=== PATIENT | male | born 1955 | race Caucasian/White ===

== ENCOUNTER 2019-09-30 13:16 | Observation (INO) ==
--- OUTSIDE RECORDS SUMMARY | 2019-09-30 13:20 | External Medical Summary | Continuity of Care Document ---
:1955 Author Name Марина Go, Provider Address Unavailable Unavailable , Care Team Providers Name Role Phone Unavailable Unavailable Unavailable Gene Manriquez Unavailable [email or web address] Emmanuel Hines DO Unavailable [email or web address] Problems Viral syndrome (079.99) (B34.9) Hypocalcemia (275.41) (E83.51) Vitamin D deficiency (268.9) (E55.9) Prostatic hyperplasia (600.90) (N40.0) Hypercholesterolemia (272.0) (E78.00) Allergies and Adverse Reactions No Known Drug Allergies (Allergy) Medications Glucosamine Sulfate 1000 MG Oral Capsule; TAKE DIRECTED. Donavan Start: 14-Aug-2016 Refills: 0 Super B-Complex Oral Tablet; TAKE 1 TABLET DAILY. Donavan Start: 14-Aug-2016 Refills: 0 Vitamin D3 125 MCG (5000 UT) Oral Tablet; Take 1 tablet henry y AddisDMichelle Start: 14-Aug-2016 Refills: 0 Fish Oil 1200 MG Oral Capsule; Take 1 PO Daily MAX Tomlinson Start: 28-Feb-2011 Refills: 0 Multiple Vitamin TABS , M.D. Refills: 0 Iron Supplement 325 (65 Fe) MG TABS , M.D. Refills: 0 Benzonatate 200 MG Oral Capsule; TAKE 1 CAPSULE 3 TIME S DAILY NEEDED. DO Emmanuel Hines Start: 04-Sep-2017 Quantity: 30 Refills: 1 Pravastatin Sodium 10 MG Oral Tablet; TAKE 1 TABLET DAILY. MAX Ryder Start: 12-Feb-2016 Quantity: 30 Refills: 11 Tamsulosin HCl - 0.4 MG Oral Capsule; take 1 PO QHS Aislinn Tomlinson Start: 12-Feb-2016 Quantity: 30 Refills: 5 Procedures Procedures not documented Immunizations Immunizations not documented Family History Mother Family history of borderline diabetes mellitus (V18.0) (Z83. 3) Status: Active Father Family history of cardiac disorder (V17.49) (Z82.49) Status: Active Social History - Smoking Status Ex-smoker Plan of Treatment Planned Observations Planned Goals not documented Results No Known Results Results not documented
[2019-09-30] MEDS ORDERED: HYDROCODONE/ACETAMOPHEN 5/325MG TAB PO STA (13:46)
--- NOTE | 2019-09-30 15:37 | Ultrasound Report ---
US abdomen ltd hernia CLINICAL HISTORY: Periumbilical hernia COMPARISON STUDY: No previous studies for comparison. FINDINGS: Note is made of a large supraumbilical hernia which contains fat, bowel and fluid. This her citlaly was not reducible. IMPRESSION: Nonreducible large supraumbilical hernia which contains bowel, fluid and fat. ACT 112: Negative or not required by law. Results electronically sent 09/30/2019 3:36 PM to: Juanito Bird PA-C Electronically signed by: Shawn Cross M.D. 09/30/2019 3:36 PM
--- NOTE | 2019-09-30 16:38 | History & Physical Report ---
Date of Service September 30, 2019 Assessment & Plan (1) Umbilical hernia: 64 year-old male with history of umbilical hernia for 7-8 years. Previously reducible but since Friday enlarged in size, unreducible, and overlying skin erythema. Ultrasound showing incarcerated hernia containing fat, bowel, and fluid. Upon extensive manipulation the hernia was able to be somewhat reduced. However given his work duties with heavy lifting, overlying erythema, ultrasound showing bowel involvement would recommend surgical repair. Patient agreed with repair given acute changes with hernia. Discussed procedure, risks, and recovery/restrictions. Patient and understood. Informed consent obtained by Dr. Sheppard. I ( Shane Sheppard MD ) D/W the risks - infection , bleeding, hernia recurrence, complications relate to mesh, pt understood, he agrees with the surgery, I answered all questions, Will admit under observation to med/surg until OR available Keep NPO IV fluids, IV morphine prn pain Will get [address] Sheppard has seen and examined pt, agrees with above. History of Present Illness Chief Complaint: nonreducible umbilical hernia and pain Primary Care Provider: Ashley Miguel is a pleasant 64 year-old male who has had a umbilical hernia for about 7-8 years which has always been small and reducible. 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 States he was not able to push the hernia back in. Pain started increasing in nature so presented to ED. Denies of any fever, chills, nausea, vomiting, chest pain, shortness of breath, difficulty breathing, change in bowel habits, diarrhea, constipation, or blood in stools. Able to urinate and have bowel movements without difficulty. No blood thinning agents. No prior surgery. Otherwise healthy and only takes vitamins, fish oil, and Advil for home medications. Allergies Allergy/AdvReac Type Severity Reaction Status Date / Time No Known Allergies Allergy Unknown Verified 09/30/19 16:51 Home Medications Home Medications Medication Instructions Recorded Confirmed Type B-COMPLEX VITAMINS (VITAMIN B 1 tab PO DAILY #0 08/24/14 09/30/19 History COMPLEX) Fish Oil ([place]-3) 1 cap PO DAILY #0 cap 08/24/14 09/30/19 History Multivitamin 1 tab PO DAILY #0 tab 08/24/14 09/30/19 History Glucosamine 400 mg PO DAILY 09/30/19 09/30/19 History Past Med/Surg History Medical History No significant past medical history Umbilical hernia Surgical History No history of previous surgery Social History Feels Safe at Home: Yes Smoking Status: Former smoker Review of Systems Review of Systems: All systems reviewed & are unremarkable except as noted in HPI & below Physical Exam Constitutional: WD/WN, vitals as above no acute distress and not ill appearing Respiratory: normal respiratory effort; no respiratory distress Gastrointestinal (Abdomen): Inspection/Auscultation: abdomen normal to inspection Percussion/Palpation: abdomen soft and + hernia (supraumbilical hernia with overlying erythema.); abdomen nontender, no guarding and abdomen not rigid upon further manipulation of the hernia was able to reduce most of it however not completely. Skin: no rashes, warm and dry Psychiatric: A+Ox3, euthymic affect Results & Data Vital Signs (Past 12 Hours) Vital Signs Temp Pulse Pulse Resp BP BP Pulse Ox 09/30/19 14:46 83 18 152/97 H 95 09/30/19 13:34 36.9 C 91 H 16 168/107 H 93 Diagnostic Findings US abdomen ltd hernia CLINICAL HISTORY: Periumbilical hernia COMPARISON STUDY: No previous studies for comparison. FINDINGS: Note is made of a large supraumbilical hernia which contains fat, bowel and fluid. This hernia was not reducible. IMPRESSION: Nonreducible large supraumbilical hernia which contains bowel, fluid and fat. Code Status & VTE Plan VTE Prophylaxis Plan VTE Prophylaxis will be ordered: Yes
[2019-09-30 17:09] LABS: Basophils # (auto) 0.04 K/uL (0-0.2); Basophils % (auto) 0.4 %; Eosinophils # (auto) 0.12 K/uL (0-0.5); Eosinophils % (auto) 1.3 %; Hematocrit (blood only) 45.7 % (42-52); Hemoglobin 15.5 g/dL (14.0-18.0); Immature Granulocytes # (auto) 0.01 K/uL (0.00-0.02); Immature Granulocytes % (auto) 0.1 %; Lymphocytes # (auto) 1.51 K/uL (1.2-3.4); Lymphocytes % (auto) 16.5 %; Mean Corpuscular Hemoglobin 32.4 pg (25-34); Mean Corpuscular Hgb Conc 33.9 g/dL (32-36); Mean Corpuscular Volume 95.6 fL (80-100); Mean Platelet Volume 9.9 fL (7.4-10.4); Monocytes # (auto) 0.89 K/uL (0.11-0.59); Monocytes % (auto) 9.7 %; Neutrophils # (auto) 6.58 K/uL (1.4-6.5); Platelet Count 250 K/uL (130-400); RDW Coefficient of Variation 13.3 % (11.5-14.5); RDW Standard Deviation 46.7 fL (36.4-46.3); Red Blood Count 4.78 M/uL (4.7-6.1); White Blood Count 9.15 K/uL (4.8-10.8)
[2019-09-30 17:27] LABS: Albumin Level 3.5 gm/dl (3.4-5.0); BUN Creatinine Ratio 16.4 (10-20); Calcium 9.5 mg/dl (8.5-10.1); Creatinine Clr Calc Pharmacy 97.1 ml/min; Est GFR (African American) 102.8; Est GFR (Non-African American) 88.7; Potassium 3.6 mmol/L (3.5-5.1)
[2019-09-30 17:30] LABS: Albumin Globulin Ratio 0.9 (0.9-2); Bilirubin,Total 0.8 mg/dl (0.2-1); Total Protein 7.5 gm/dl (6.4-8.2)
--- NOTE | 2019-09-30 17:37 | Anesthesiology Consultation ---
Date of Service September 30, 2019 Assessment & Plan (1) Encounter for pre-operative examination: Chart Review Chart Review: Acceptable Risk for Surgery and Patient NOT seen in Pre Admission Testing Consults Requested none History Surgery Operation Date: 09/30/19 10:10 Proposed Procedures p Open Umbilical Hernia Repair, Possible Mesh - Shane Sheppard MD Height/Weight Height: 5 ft 8 in Weight: 110 kg Allergies Allergy/AdvReac Type Severity Reaction Status Date / Time No Known Allergies Allergy Unknown Verified 09/30/19 16:51 Medications Home Medications Medication Instructions Recorded Confirmed Last Taken B-COMPLEX VITAMINS (VITAMIN B 1 tab PO DAILY #0 08/24/14 09/30/19 Unknown COMPLEX) Fish Oil ([place]-3) 1 cap PO DAILY #0 cap 08/24/14 09/30/19 Unknown Multivitamin 1 tab PO DAILY #0 tab 08/24/14 09/30/19 Unknown Glucosamine 400 mg PO DAILY 09/30/19 09/30/19 Unknown Past Medical History Medical History No significant past medical history Umbilical hernia Exercise / Class Metabolic Activity II 4-5 Yardwork/Stairs/Walk up hill Past Surgical History Surgical History No history of previous surgery Past Anesthesia History No Hx of Anesthesia Complications and No Family Hx of Anesthesia Complications History of PONV No Hx of PONV and No Hx of Motion Sickness Social History Smoking Status: Former smoker Do You Dip or Chew Tobacco: No Hx Alcohol Use: No Hx Substance Use: No Physical Exam Vital Signs Last Vital Signs Temp 36.9 C 09/30/19 17:43 Pulse 81 09/30/19 17:27 Resp 18 09/30/19 17:43 BP 136/100 09/30/19 17:43 Pulse Ox 95 09/30/19 17:43 Testing Laboratory Results 09/30/19 16:56 09/30/19 16:56
--- NOTE | 2019-09-30 17:44 | History & Physical Bridge Note ---
Date of Service September 30, 2019 History & Physical Bridge Note I have examined the patient, reviewed the History & Physical and in the interval since the performance of the History & Physical I have noted the following changes of clinical significance: no changes noted
[2019-09-30] MEDS ORDERED: CEFAZOLIN 2,000 MG/15 ML IV PUSH IV ONE (17:47)
[2019-09-30] MEDS ORDERED: ONDANSETRON INJ 2 MG/ML 2 ML VIAL IV PRN ×3 (17:58→21:02)
[2019-09-30] MEDS ORDERED: fentaNYL citrate 100 MCG/2 ML VIAL IV PRN (17:58)
[2019-09-30] MEDS ORDERED: ePHEDrine sulfate 50 MG/ML AMP IV PRN (17:58)
[2019-09-30] MEDS ORDERED: ATROPINE SULFATE 0.1 MG/ML 10ML SYR IV PRN (17:58)
[2019-09-30] MEDS ORDERED: HYDROmorphone INJ 1 MG/ML SYRINGE IV PRN ×2 (17:58→21:02)
[2019-09-30] MEDS ORDERED: CEFAZOLIN 2000MG 2,000 MG/15 ML SYR IV SCH (18:00)
[2019-09-30] MEDS ORDERED: fentaNYL citrate 100 MCG/2 ML VIAL ONE (18:10)
[2019-09-30] MEDS ORDERED: PROPOFOL IV EMULSION 10 MG/ML 20 ML VIAL IV ONE (18:10)
[2019-09-30] MEDS ORDERED: ONDANSETRON INJ 2 MG/ML 2 ML VIAL ONE (18:10)
[2019-09-30] MEDS ORDERED: LARYING-O-JET KIT (LTA) ONE (18:10)
[2019-09-30] MEDS ORDERED: LIDOCAINE HCL 2% 2 ML VIAL/AMP(20MG/ML) INFIL ONE (18:10)
[2019-09-30] MEDS ORDERED: NEOSTIGMINE METHYLSULFATE 5 MG/5 ML SYR ONE (18:10)
[2019-09-30] MEDS ORDERED: GLYCOPYRROLATE 0.2 MG/ML VIAL ONE (18:10)
[2019-09-30] MEDS ORDERED: MIDAZOLAM HCL 1 MG/ML 2ML VIAL ONE (18:10)
[2019-09-30] MEDS ORDERED: DEXAMETHASONE SOD INJ 4 MG/ML VIAL ONE (18:10)
[2019-09-30] MEDS ORDERED: ROCURONIUM BROMIDE 10 MG/ML 5 ML VIAL ONE (18:11)
[2019-09-30] MEDS ORDERED: BACITRACIN OINT 15 GM TUBE ONE (18:16)
[2019-09-30] MEDS ORDERED: LIDOCAINE HCL 1% 20 ML VIAL ONE (18:16)
[2019-09-30] MEDS ORDERED: BUPIVACAINE 0.5 % 5 MG/1 ML MPF 30ML VIAL ONE (18:16)
[2019-09-30] MEDS ORDERED: ePHEDrine sulfate 50 MG/ML SYR ONE (19:07)
[2019-09-30] MEDS ORDERED: PHENYLEPHRINE HCL 10 MG/ML VIAL ONE (19:07)
[2019-09-30] MEDS ORDERED: KETOROLAC 30 MG/ML VIAL ONE (19:18)
--- NOTE | 2019-09-30 19:44 | Post Operative Brief Note ---
Immediate Post Op Note v1 Date of Surgery September 30, 2019 Pre & Post Diagnosis Operation Date: 09/30/19 10:10 Pre-Op Diagnosis: Incarcerated umbilical hernia Post-Op Diagnosis: Incarcerated ventral hernia and umbilical hernia I identified the patient and participated in the time-out.: Yes Procedure Operation Date: 09/30/19 10:10 Actual Procedures p Repair of Incarcerated Ventral Hernia and umbilical hernia with Mesh - Shane Sheppard MD Surgeon Shane Sheppard MD Facility Worker certified surgical assistant Estimated Blood Loss 10 Findings Consistent with Post-Op Diagnosis incarcerated ventral hernia size 3x3cm, umbilical hernia size 0.8x0.8cm, Fluids 1200ml Specimens hernia sac Anesthesia Type General Complications none Disposition Accompanied Patient To Recovery: Yes Disposition: Recovery Room Overlapping Procedure I was immediately available: during the entire case.
[2019-09-30] MEDS ORDERED: LACTATED RINGER'S 1,000 ML IV SCH ×2 (21:02)
[2019-09-30] MEDS ORDERED: OXYCODONE/ACETAMINOPHEN 5mg/325mg TAB PO PRN ×2 (21:02)
[2019-09-30] MEDS ORDERED: OXYCODONE/ACETAMINOPHEN 5mg/325mg TAB PO STA (21:02)
[2019-09-30] MEDS ORDERED: MoRPHine SULFATE 4 MG/ML 1 ML CARP\\VIAL IV PRN ×2 (21:02)
[2019-09-30] MEDS ORDERED: ACETAMINOPHEN 325 MG TAB PO PRN (21:02)
[2019-09-30] MEDS ORDERED: CEFAZOLIN 2000MG 2,000 MG/15 ML SYR IV ONE (21:02)
--- NOTE | 2019-09-30 21:34 | Anesthesiology Progress Note ---
Date of Service September 30, 2019 Anesthesia Post Procedure Vital Signs Vital Signs: Temp Pulse Pulse Pulse Resp BP BP 09/30/19 21:00 36.5 C 83 18 135/89 09/30/19 20:40 88 18 123/83 09/30/19 20:30 36.5 C 85 16 115/86 09/30/19 20:20 83 14 130/85 09/30/19 20:10 82 13 126/85 09/30/19 20:00 88 21 127/78 09/30/19 19:53 36.9 C 95 H 22 123/74 09/30/19 17:43 36.9 C 18 136/100 09/30/19 17:27 81 20 155/89 H 09/30/19 16:02 81 20 155/92 H 09/30/19 14:46 83 18 152/97 H 09/30/19 13:34 36.9 C 91 H 16 168/107 H Pulse Ox 09/30/19 21:00 91 09/30/19 20:40 93 09/30/19 20:30 94 09/30/19 20:20 94 09/30/19 20:10 94 09/30/19 20:00 97 09/30/19 19:53 98 09/30/19 17:43 95 09/30/19 17:27 93 09/30/19 16:02 93 09/30/19 14:46 95 09/30/19 13:34 93 Pain Intensity Medial Abdomen: Pain Intensity: 0 Transfer of Care Handoff Completed per policy Notes Mental Status: alert / awake / arousable and participated in evaluation Patient Amnestic to Procedure: Yes Nausea / Vomiting: adequately controlled Pain: adequately controlled Airway Patency, RR, SpO2: stable & adequate BP & HR: stable & adequate Hydration State: stable & adequate Anesthetic Complications: no major complications apparent and Pt Satisfied with anesthetic care
--- NOTE | 2019-10-01 01:59 | Operative Report (OR) ---
DATE OF OPERATION: 09/30/2019 PREOPERATIVE DIAGNOSIS: Incarcerated umbilical hernia. POSTOPERATIVE DIAGNOSIS: Incarcerated ventral hernia and umbilical hernia. OPERATION: Open repair of incarcerated ventral hernia and umbilical hernia with mesh. SURGEON: Shane Sheppard MD ANESTHESIA: General. ESTIMATED BLOOD LOSS: About 10 mL. FINDINGS: Incarcerated ventral hernia size about 3 x 3 cm containing the small bowel and umbilical hernia size about 0.8 x 0.8 cm. The ventral hernia is just located above umbilical hernia. COMPLICATIONS: None. INDICATIONS FOR THE PROCEDURE: This is a 64-year-old gentleman who presented to the ED with periumbilical pain with bulging. The patient had umbilical hernia for 7 years and recently it got worse bulging with pain and skin color change. The patient had ultrasound diagnosis as incarcerated umbilical hernia. So once I got the history and physical exam and reviewed the ultrasound, I recommended to do the open repair of incarcerated umbilical hernia, possibly with mesh. I did talk to the patient about the benefits, the risks, and alternate procedure. I indicated the risks may include, but not limited, such as bleeding, infection, hernia recurrence, complication related to mesh. The patient understands. He signed informed consent and I answered all questions. DETAILS OF PROCEDURE: We brought in the patient to the OR, put the patient in the supine position. The patient received SCDs on bilateral legs to prevent DVT. Also, patient received 2 g Ancef IV for prophylactic antibiotic. The patient received general anesthesia without difficulty. The abdomen was prepped and draped in routine sterile fashion. After time-out, reexamined the patient. The patient had significant bulging on the top of umbilicus with the bulging size of about 8 x 8 cm with redness skin color change. Also small bulging on the umbilicus. At this moment, we made a midline incision just above umbilicus, the incision size about 8 cm long, dissection of the subcutaneous layer and then we found the patient had a large hernia sac, about 8 x 8 cm hernia sac. Then we mobilized the hernia sac and found the patient had the incarcerated ventral hernia. Once we completely mobilized the hernia sac, we opened the hernia sac and then we were able to reduce the small bowel omental fat back to abdominal cavity. Then we excised the hernia sac. Then we found the patient had ventral hernia; the hernia, the neck size about 3 x 3 cm and also patient had one umbilical hernia, the umbilical hernia size about 0.8 x 0.8 cm. At this moment, we combined these 2 hernias into one hernia. Once we opened the fascia, noted they were close next to each other. Once we combined into one hernia, we chose a 6.4 cm round mesh to repair his ventral hernia and umbilical hernia. I used 0 Ethibond to suture the mesh to the fascial layer interruptedly 360 degrees. Then we tied each suture one by one and hemostasis was obtained. Then I closed the subcutaneous layer by using 2-0 Vicryl interruptedly, closed skin by using 4-0 Vicryl continuous running. Then we put the dressing on. The patient tolerated the procedure well. All the instrument, needle, and sponge count were correct x2 at the end of the case. The patient transferred to recovery room in stable condition. The specimen, hernia sac, was sent to pathology. After the procedure, I did talk to the patient and family member about the OR finding and procedure we did, they understand. I attest to the content of the Intraoperative Record and any orders documented therein. Any exceptions are noted below. FLACA
[2019-10-01] MEDS: CEFAZOLIN 1000MG 1,000 MG/7.5 ML SYR IV SCH ×2 (02:50→09:59)
[2019-10-01 06:43] LABS: Basophils # (auto) 0.01 K/uL (0-0.2); Basophils % (auto) 0.1 %; Hematocrit (blood only) 44.2 % (42-52); Hemoglobin 14.6 g/dL (14.0-18.0); Immature Granulocytes # (auto) 0.01 K/uL (0.00-0.02); Immature Granulocytes % (auto) 0.1 %; Lymphocytes # (auto) 0.69 K/uL (1.2-3.4); Lymphocytes % (auto) 6.6 %; Mean Corpuscular Volume 96.9 fL (80-100); Mean Platelet Volume 10.1 fL (7.4-10.4); Monocytes # (auto) 0.46 K/uL (0.11-0.59); Monocytes % (auto) 4.4 %; Neutrophils # (auto) 9.29 K/uL (1.4-6.5); Neutrophils % (auto) 88.8 %; Platelet Count 242 K/uL (130-400); RDW Coefficient of Variation 13.6 % (11.5-14.5); RDW Standard Deviation 48.5 fL (36.4-46.3); Red Blood Count 4.56 M/uL (4.7-6.1); White Blood Count 10.46 K/uL (4.8-10.8)
--- NOTE | 2019-10-01 08:24 | Anesthesiology Progress Note ---
Date of Service October 01, 2019 Anesthesia Post Procedure Vital Signs Vital Signs: Temp Pulse Pulse Pulse Pulse Resp BP 10/01/19 07:38 36.9 C 87 20 10/01/19 02:52 36.5 C 84 16 10/01/19 00:05 10/01/19 00:04 36.6 C 81 16 09/30/19 23:36 09/30/19 22:06 36.6 C 88 18 09/30/19 21:33 36.5 C 91 H 18 09/30/19 21:00 36.5 C 83 18 09/30/19 20:40 88 18 09/30/19 20:30 36.5 C 85 16 09/30/19 20:20 83 14 09/30/19 20:10 82 13 09/30/19 20:00 88 21 09/30/19 19:53 36.9 C 95 H 22 09/30/19 17:43 36.9 C 18 09/30/19 17:27 81 20 09/30/19 16:02 81 20 09/30/19 14:46 83 18 09/30/19 13:34 36.9 C 91 H 16 168/107 H BP Pulse Ox 10/01/19 07:38 104/70 90 10/01/19 02:52 98/63 L 93 10/01/19 00:05 91 10/01/19 00:04 105/69 89 L 09/30/19 23:36 116/78 91 09/30/19 22:06 121/78 92 09/30/19 21:33 123/81 93 09/30/19 21:00 135/89 91 09/30/19 20:40 123/83 93 09/30/19 20:30 115/86 94 09/30/19 20:20 130/85 94 09/30/19 20:10 126/85 94 09/30/19 20:00 127/78 97 09/30/19 19:53 123/74 98 09/30/19 17:43 136/100 95 09/30/19 17:27 155/89 H 93 09/30/19 16:02 155/92 H 93 09/30/19 14:46 152/97 H 95 09/30/19 13:34 93 Pain Intensity Medial Abdomen: Pain Intensity: 0 Notes Mental Status: alert / awake / arousable and participated in evaluation Patient Amnestic to Procedure: Yes Nausea / Vomiting: adequately controlled Pain: adequately controlled Airway Patency, RR, SpO2: stable & adequate BP & HR: stable & adequate Hydration State: stable & adequate Anesthetic Complications: no major complications apparent and Pt Satisfied with anesthetic care
--- NOTE | 2019-10-01 09:37 | Surgery Progress Note ---
Date of Service October 01, 2019 Assessment & Plan (1) Umbilical hernia: POD # 1 s/p repair of incarcerated ventral hernia and small umbilical hernia with mesh -vitals stable, afebrile - postop pain minimal to none - tolerating diet Plan: D/c iv fluids encouraged to ambulate hallway abdominal binder for support discharge home today discharge instructions reviewed f/u surgery office [address] Sheppard has seen patient, agrees with above Subjective feeling great minimal to no pain tolerating regular diet, no n/v urinating without difficulty Physical Exam Constitutional: WD/WN, vitals as above no acute distress Respiratory: normal respiratory effort; no respiratory distress Gastrointestinal (Abdomen): Inspection/Auscultation: abdomen normal to inspection; abdomen not distended Percussion/Palpation: abdomen soft; abdomen nontender, no guarding and abdomen not rigid Skin: no rashes, warm and dry + incision (incision covered with dry dressing, no spotting) Psychiatric: A+Ox3, euthymic affect Results & Data Vital Signs (Past 12 Hours) Vital Signs Temp Pulse Pulse Pulse Resp BP Pulse Ox 10/01/19 07:38 36.9 C 87 20 104/70 90 10/01/19 02:52 36.5 C 84 16 98/63 L 93 10/01/19 00:05 91 10/01/19 00:04 36.6 C 81 16 105/69 89 L 09/30/19 23:36 116/78 91 09/30/19 22:06 36.6 C 88 18 121/78 92 Laboratory Results 10/01/19 09/30/19 09/30/19 Range/Units 06:18 16:56 16:56 WBC 10.46 9.15 (4.8-10.8) K/uL RBC 4.56 L 4.78 (4.7-6.1) M/uL Hgb 14.6 15.5 (14.0-18.0) g/dL Hct 44.2 45.7 (42-52) % MCV 96.9 95.6 (80-100) fL MCH 32.0 32.4 (25-34) pg MCHC 33.0 33.9 (32-36) g/dL RDW Std Deviation 48.5 H 46.7 H (36.4-46.3) fL RDW Coeff of Benjamin 13.6 13.3 (11.5-14.5) % Plt Count 242 250 (130-400) K/uL MPV 10.1 9.9 (7.4-10.4) fL Immature Gran % (Auto) 0.1 0.1 % Neut % (Auto) 88.8 72.0 % Lymph % (Auto) 6.6 16.5 % [place] % (Auto) 4.4 9.7 % Eos % (Auto) 0.0 1.3 % Baso % (Auto) 0.1 0.4 % Immature Gran # (Auto) 0.01 0.01 (0.00-0.02) K/uL Neut # (Auto) 9.29 H 6.58 H (1.4-6.5) K/uL Lymph # (Auto) 0.69 L 1.51 (1.2-3.4) K/uL [place] # (Auto) 0.46 0.89 H (0.11-0.59) K/uL Eos # (Auto) 0.00 0.12 (0-0.5) K/uL Baso # (Auto) 0.01 0.04 (0-0.2) K/uL Sodium 141 (136-145) mmol/L Potassium 3.6 (3.5-5.1) mmol/L Chloride 110 H (98-107) mmol/L Carbon Dioxide 28 (21-32) mmol/L Anion Gap 3.0 (3-11) BUN 15 (7-18) mg/dl Creatinine 0.90 (0.6-1.4) mg/dl Est Cr Clr Drug Dosing 97.1 ml/min Est GFR ( Amer) 102.8 Est GFR (Non-Af Amer) 88.7 BUN/Creatinine Ratio 16.4 (10-20) Glucose 105 H (70-99) mg/dl Calcium 9.5 (8.5-10.1) mg/dl Total Bilirubin 0.8 (0.2-1) mg/dl AST 11 L (15-37) U/L ALT 18 (12-78) U/L Alkaline Phosphatase 86 (45-117) U/L Total Protein 7.5 (6.4-8.2) gm/dl Albumin 3.5 (3.4-5.0) gm/dl Globulin 4.0 (2.5-4.0) gm/dl Albumin/Globulin Ratio 0.9 (0.9-2)
--- NOTE | 2019-10-01 11:17 | Emergency Department Note ---
History of Present Illness General Chief complaint: Groin Pain Stated complaint: GET HERNIA CHECK Time Seen by Provider: 09/30/19 13:39 History of Present Illness Maximum Pain Intensity: 4 This is a 64-year-old male presenting to the emergency department for evaluation of abdominal pain worsening over the past 3 to 4 days. The patient has a periumbilical hernia that is usually reducible. He states that a few days ago it "popped out", and he has not been able to push it back in. He states that over the past 1 to 2 days he has had increasing pain and now has redness over the hernia site. He has not had fevers or chills. No difficulty using the bathroom. He rates his current discomfort a 4/10 and has not taken anything [id number] for his symptoms. Last bowel movement was yesterday and was normal. Home Medications Home Medications Medication Instructions Recorded Confirmed Type B-COMPLEX VITAMINS (VITAMIN B 1 tab PO DAILY #0 08/24/14 09/30/19 History COMPLEX) Fish Oil ([place]-3) 1 cap PO DAILY #0 cap 08/24/14 09/30/19 History Multivitamin 1 tab PO DAILY #0 tab 08/24/14 09/30/19 History Glucosamine 400 mg PO DAILY 09/30/19 09/30/19 History oxycodone-acetaminophen [Percocet] 1 tab PO Q4H PRN #12 tab 10/01/19 Rx Allergies Allergy/AdvReac Type Severity Reaction Status Date / Time No Known Allergies Allergy Unknown Verified 09/30/19 16:51 Past Med/Surg History Medical History No significant past medical history Umbilical hernia (Acute) Surgical History No history of previous surgery Social History Preferred Language: Italian Communication Ability: Effective 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 Beliefs That Will Affect Care: None Current Living Situation: Spouse Feels Safe at Home: Yes Smoking Status: Former smoker Do You Dip or Chew Tobacco: No ; Hx Alcohol Use: No Hx Substance Use: No Review of Systems A total of 10 systems reviewed and were otherwise negative Physical Exam Vital Signs Vital Signs - 24 hr 09/30/19 13:34 09/30/19 14:46 09/30/19 16:02 Temperature 36.9 C Temperature Source Oral Pulse Rate 91 H Pulse Rate [Left] 83 81 Pulse Rhythm [Left] Regular Respiratory Rate 16 18 20 Respiratory Effort / Characteristics Non-Labored Spontaneous Non-Labored Non-Labored Spontaneous Respiratory Depth Normal Normal Normal Respiratory Pattern Regular Regular Blood Pressure 168/107 H Blood Pressure [Left Arm] 152/97 H 155/92 H Blood Pressure Mean 127 Blood Pressure Mean [Left Arm] 115 113 Pulse Oximetry 93 95 93 Oxygen Delivery Method Room Air Room Air Room Air Sepsis Recent Fever Within 48 Hours No Sepsis New/Unexplained Change in Mental Status No Sepsis Action Taken by Nursing No Action Required VITALS: Vitals are noted on the nurse's note and reviewed by myself. Vital signs stable. GENERAL: Well-developed, well-nourished, white male who appears mildly uncomfortable but overall cooperative. HEAD: Normocephalic atraumatic. EYES: Pupils equal round and reactive to light and accommodation. Conjunctivae without injection, sclerae without icterus. Extraocular movements intact. HEART: Regular rate and rhythm without murmurs gallops or rubs. LUNGS: Clear to auscultation bilaterally without wheezes, rales or rhonchi. No retractions or accessory muscle use. ABDOMEN: Positive normal bowel sounds x 4. There is a rather large roughly 8 x 8 cm periumbilical hernia. Hernia site is very firm and erythematous. It is without significant tenderness, although it does cause some discomfort with palpation. This is not reducible. MUSCULOSKELETAL: No muscle atrophy, erythema, or edema noted. Full range of motion in all extremities. No tenderness to palpation. NEURO: Patient was alert and oriented to person place and time. CN II through XII grossly intact. SKIN: The skin was without additional rashes, erythema, edema, or bruising. Capillary refill less than 2 seconds. Course Administered Medications Cefazolin Sodium (Ancef 1000mg) 1,000 mg in 7.5 mls @ 2.5 mls/min IV Q8H CASSI Stop: 10/03/19 01:59 Last Admin: 10/01/19 09:59 Dose: 2.5 mls/min Documented by: [id number] Admin: 10/01/19 02:50 Dose: 2.5 mls/min Documented by: [id number] Discontinued Medications Hydrocodone Bitart/Acetaminophen ([place] 5/325) 1 tab PO NOW STA Stop: 09/30/19 13:47 Last Admin: 09/30/19 14:01 Dose: 1 tab Documented by: [id number] Bacitracin (Bacitracin) Confirm Administered Dose 45 appln .ROUTE .STK-MED ONE Stop: 09/30/19 18:17 Last Admin: 09/30/19 19:35 Dose: 1 appln Documented by: [id number] Bupivacaine HCl (Marc[place] 0.5% Mpf) Confirm Administered Dose 30 ml .ROUTE .STK- MED ONE Stop: 09/30/19 18:17 Last Admin: 09/30/19 19:30 Dose: 12 ml Documented by: [id number] Cefazolin Sodium (Ancef 2000mg) Confirm Administered Dose 2,000 mg IV .STK-MED O NE Stop: 09/30/19 17:48 Last Admin: 09/30/19 18:52 Dose: Not Given Documented by: [id number] Cefazolin Sodium (Ancef 2000mg) 2,000 mg in 15 mls @ 3.75 mls/min IV PREOP CASSI; Protocol Stop: 09/30/19 18:01 Last Admin: 09/30/19 18:20 Dose: 3.75 mls/min Documented by: [id number] Lactated Ringer's (Lr) 1,000 mls @ 100 mls/hr IV .Q10H CASSI Stop: 10/30/19 21:01 Last Infusion: 09/30/19 23:30 Dose: 0 mls/hr Documented by: [id number] Infusion: 09/30/19 22:10 Dose: 0 mls/hr Documented by: [id number] Admin: 09/30/19 22:08 Dose: 100 mls/hr Documented by: [id number] Lactated Ringer's (Lr) 1,000 mls @ 50 mls/hr IV .Q20H CASSI Stop: 10/30/19 21:01 Last Infusion: 10/01/19 09:51 Dose: 0 mls/hr Documented by: [id number] Infusion: 09/30/19 23:30 Dose: 50 mls/hr Documented by: [id number] Admin: 09/30/19 22:13 Dose: 50 mls/hr Documented by: [id number] Lidocaine HCl (Xylocaine 1% (Local)) Confirm Administered Dose 20 ml .ROUTE .STK-MED ONE Stop: 09/30/19 18:17 Last Admin: 09/30/19 19:30 Dose: 12 ml Documented by: [id number] Oxycodone/Acetaminophen (Percocet 5mg/325mg) 1 tab PO NOW STA Stop: 09/30/19 21:03 Last Admin: 09/30/19 22:13 Dose: 1 tab Documented by: [id number] Medical Decision Making Differential Diagnosis Differential diagnosis: Etiologies such as incarcerated hernia, biliary colic, cholecystitis, hepatitis, pancreatitis, cardiac disease, pancreatitis, gastritis, peptic ulcer disease, appendicitis, cystitis, diverticulitis, mesenteric ischemia, inflammatory bowel disease, ileus, bowel obstruction, testicular/adnexal torsion, aortic pathology, shingles, as well as others were considered Laboratory Data Result diagrams: 10/01/19 06:18 09/30/19 16:56 Lab Results 09/30/19 09/30/19 Range/Units 16:56 16:56 WBC 9.15 (4.8-10.8) K/uL RBC 4.78 (4.7-6.1) M/uL Hgb 15.5 (14.0-18.0) g/dL Hct 45.7 (42-52) % MCV 95.6 (80-100) fL MCH 32.4 (25-34) pg MCHC 33.9 (32-36) g/dL RDW Std Deviation 46.7 H (36.4-46.3) fL RDW Coeff of Benjamin 13.3 (11.5-14.5) % Plt Count 250 (130-400) K/uL MPV 9.9 (7.4-10.4) fL Immature Gran % (Auto) 0.1 % Neut % (Auto) 72.0 % Lymph % (Auto) 16.5 % Luna % (Auto) 9.7 % Eos % (Auto) 1.3 % Baso % (Auto) 0.4 % Immature Gran # (Auto) 0.01 (0.00-0.02) K/uL Neut # (Auto) 6.58 H (1.4-6.5) K/uL Lymph # (Auto) 1.51 (1.2-3.4) K/uL Luna # (Auto) 0.89 H (0.11-0.59) K/uL Eos # (Auto) 0.12 (0-0.5) K/uL Baso # (Auto) 0.04 (0-0.2) K/uL Sodium 141 (136-145) mmol/L Potassium 3.6 (3.5-5.1) mmol/L Chloride 110 H (98-107) mmol/L Carbon Dioxide 28 (21-32) mmol/L Anion Gap 3.0 (3-11) BUN 15 (7-18) mg/dl Creatinine 0.90 (0.6-1.4) mg/dl Est Cr Clr Drug Dosing 97.1 ml/min Est GFR ( Amer) 102.8 Est GFR (Non-Af Amer) 88.7 BUN/Creatinine Ratio 16.4 (10-20) Glucose 105 H (70-99) mg/dl Calcium 9.5 (8.5-10.1) mg/dl Total Bilirubin 0.8 (0.2-1) mg/dl AST 11 L (15-37) U/L ALT 18 (12-78) U/L Alkaline Phosphatase 86 (45-117) U/L Total Protein 7.5 (6.4-8.2) gm/dl Albumin 3.5 (3.4-5.0) gm/dl Globulin 4.0 (2.5-4.0) gm/dl Albumin/Globulin Ratio 0.9 (0.9-2) Imaging Data Radiologist's Impression: US abdomen ltd hernia CLINICAL HISTORY: Periumbilical hernia COMPARISON STUDY: No previous studies for comparison. FINDINGS: Note is made of a large supraumbilical hernia which contains fat, bowel and fluid. This hernia was not reducible. IMPRESSION: Nonreducible large supraumbilical hernia which contains bowel, fluid and fat. MDM Narrative Physical exam and history were performed. Nursing notes, EMR, and Medication List were personally reviewed. Patient appears to have a fairly large periumbilical hernia on exam. The patient does not appear toxic, however he is slightly uncomfortable. Because of his symptoms the patient was sent to ultrasound for further evaluation. Ultrasound was reviewed by myself and radiology and does reveal a large hernia containing bowel, fluid, and fat. Upon his return to the ER IV access was established and labs were obtained. He was made n.p.o. He does not have a significantly elevated white blood cell count, gross anemia, bandemia, or significant electrolyte imbalance. The case was discussed with the on-call surgical team, who did evaluate the patient here in the ER. The patient will be going to the OR for surgical intervention as surgery was also not able to reduce the hernia. Please see the surgical team dictation for further patient course, plan, and disposition. The chart was completed utilizing [employer] Speech Voice Recognition Software. Grammatical errors, random word insertions, pronoun errors, and incomplete sentences are an occasional consequence of this system due to software limitations, ambient noise, and hardware issues. Any formal questions or concerns about the content, text, or information contained within the body of this dictation should be directly addressed to the provider for clarification. . Impression & Plan Umbilical hernia, Abdominal pain Discharge Plan Visit Data *Final* Discharge Date/Time: 09/30/19 17:24 Chief Complaint: Groin Pain Stated Complaint: GET HERNIA CHECK ED Provider: Raj Torres ED Midlevel Provider: Juanito Bird Discharge Problem: Umbilical hernia, Abdominal pain Patient Disposition: Still a Patient Discharge Instructions Interventions: ED Discharge Assessment Last Done: 09/30/19 17:24 Discharge Problem: Umbilical hernia Qualifiers: Obstruction and gangrene presence: without obstruction or gangrene Qualified Code(s): K42.9 - Umbilical hernia without obstruction or gangrene Abdominal pain Qualifiers: Abdominal location: periumbilical Qualified Code(s): R10.33 - Periumbilical pain
--- NOTE | 2019-10-04 09:18 | Discharge Summary ---
Date of Service October 04, 2019 Admission HPI Per Admitting Provider Lamont is a pleasant 64 year-old male who has had a umbilical hernia for about 7-8 years which has always been small and reducible. 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 States he was not able to push the hernia back in. Pain started increasing in nature so presented to ED. Denies of any fever, chills, nausea, vomiting, chest pain, shortness of breath, difficulty breathing, change in bowel habits, diarrhea, constipation, or blood in stools. Able to urinate and have bowel movements without difficulty. No blood thinning agents. No prior surgery. Otherwise healthy and only takes vitamins, fish oil, and Advil for home medications. Principal Diagnosis Incarcerated ventral/umbilical hernia Discharge Data Allergies Allergy/AdvReac Type Severity Reaction Status Date / Time No Known Allergies Allergy Unknown Verified 09/30/19 16:51 Consultations 09/30/19 16:48 Consult General Surgery Stat Procedures Performed Operation Date: 09/30/19 10:10 Actual Procedures p Repair of Incarcerated Umbilical Hernia(Not Applicable) - Shane Sheppard MD s Ventral Hernia with Mesh(Not Applicable) - Shane Sheppard MD Ordered Studies 09/30/19 13:46 abdomen ltd hernia Stat Hospital Course (1) Umbilical hernia: Patient was evaluated in the emergency department. Found to have large supraumbilical bulge with overlying mild erythema of the skin. Upon examination and manipulation was able to reduce most of the hernia however unable to feel the actual fascial defect. Ultrasound showed incarcerated fat and bowel. Given this and patients job duties and chornic history of hernia for 7 years, advised hernia repair in which patient agreed. Patient was admitted under observation to medical/surgical floor until he could be taken to operating room for ventral/umbilical hernia repair with possible mesh. Patient was taken to operating room and found to have both an incarcerated ventral hernia and small umbilical hernia. Hernias were connected and repaired with mesh. Patient tolerated procedure well and transferred back to med/surg floor for postop care. POD # 1 patient evaluated and vitals stable, afebrile, postop pain minimal to none, tolerating diet, no n/v, urinating without difficulty. Encouraged ambulating hallway. Patient evaluated a few hours later and was ready for discharge. Discharge instructions reviewed with patient. Patient discharged home on POD # 1 in stable condition. Total Time Total Time Spent Total Time Spent (In Minutes): 20 Total Time Includes: Examination of the Patient, Discharge Planning and Medication Reconciliation Discharge Plan Discharge Items Patient Disposition: Home - Self-Care Reason For Visit: INCARCERATED UMBILICAL HERNIA Discharge Diagnosis: Incarcerated ventral hernia Umbilical hernia Activity: Per Instructions section Non-emergency contact: Surgeon Call non-emergency contact if: you have any medication questions, your pain is not controlled, your pain is worsening, your pain is concerning for you, you have a fever, your temperature is above 101, your wound has increased redness, your wound has increased drainage and your wound pain has increased Follow-up/Referrals: Ashley Roca PA-C [Primary Care Provider] - ( OFFICE WILL CALL YOU WITH FOLLOW UP APPT) Diet: Regular Addtl Attending Provider Instructions: ACTIVITY RECOMMENDATIONS: * Walk as much as possible. * No heavy lifting (>10-20 lbs.) for at least 4 weeks. SPECIAL CARE INSTRUCTIONS: * Ice to hernia repair site on and off until bedtime tonight. * May shower on Friday. Remove outer dressing and then shower. Let water run over area and pat dry. * Leave steri strips on for one week. * Wear abdominal binder for support when walking and doing any light activity. May remove at bedtime. * Call the surgeon's office with any questions or concerns - (ex. temperature higher than 101 degrees F, excessive bleeding or pain). MEDICATIONS: Resume previous medications unless instructed otherwise by your surgeon. * Ibuprofen 600 mg every 6 hours with food * Percocet 1 every 4 hours, as needed for pain FOLLOW UP VISIT: If not already scheduled, please call the office to schedule a two week follow- up appointment. Office number Pending Studies at Discharge: No Stand-Alone Forms: [employer], Opioid Pain Management, Smoking Cessation Medications and DC Order Prescriptions: New oxycodone-acetaminophen [Percocet] 5-325 mg tablet 1 tab PO Q4H PRN (Reason: pain) Qty: 12 RF: 0 Continued B-COMPLEX VITAMINS (VITAMIN B COMPLEX) 1 TAB tablet 1 tab PO DAILY Qty: 0 RF: 0 Fish Oil ([place]-3) 1 EA capsule 1 cap PO DAILY Qty: 0 RF: 0 Multivitamin tablet 1 tab PO DAILY Qty: 0 RF: 0 Glucosamine capsule 400 mg PO DAILY RF: 0 Discharge Orders: Discharge Order (Routine); Ordered 10/01/19 Ordered By: Lucy Ellsworth/Other Patient Handouts: Acetaminophen Oxycodone tablets Admission Data Admit Date/Time: 09/30/19 17:25 Attending Provider: Shane Sheppard Admit Provider: Shane Sheppard Primary Care Provider: Ashley Roca Other Providers: Shane Sheppard Other Interventions: Discharge Summary Assessment (RN) Last Done: 10/01/19 11:28 DC Date/Time DO NOT enter until pt leaves facility: 10/01/19 13:30
== END 2019-10-01 13:30 | disposition home or self-care (01) ==
LOC: ED 13:16 → 3N 17:24 → OR 17:24

== ENCOUNTER 2023-07-24 07:20 | Observation (INO) ==
--- NOTE | 2023-06-16 08:54 | PAT Medication Instructions ---
Medication Instructions Date of Service June 16, 2023 Home Medications acetaminophen 500 mg tablet 500 mg PO BID ascorbic acid (vitamin C) 500 mg tablet,extended release (Vitamin C ER) 500 mg PO QAM atorvastatin 10 mg tablet 10 mg PO QAM cholecalciferol (vitamin D3) 25 mcg (1,000 unit) chewable tablet (Vitamin D3) 25 mcg PO QAM glucosamine sulfate 500 mg tablet 500 mg PO QAM omega 1-jbi-vtd-fish oil 900 mg-1,400 mg capsule,delayed release 1 cap PO QAM potassium chloride 10 mEq capsule,extended release 100 meq PO QAM turmeric root extract 500 mg capsule 500 mg PO QAM vitamin E (dl, acetate) 450 mg (1,000 unit) capsule 450 mg PO QAM STOP taking 2 weeks before surgery glucosamine sulfate 500 mg tablet 500 mg PO QAM omega 8-lcn-fmp-fish oil 900 mg-1,400 mg capsule,delayed release 1 cap PO QAM turmeric root extract 500 mg capsule 500 mg PO QAM vitamin E (dl, acetate) 450 mg (1,000 unit) capsule 450 mg PO QAM DO NOT take the morning of surgery ascorbic acid (vitamin C) 500 mg tablet,extended release (Vitamin C ER) 500 mg PO QAM cholecalciferol (vitamin D3) 25 mcg (1,000 unit) chewable tablet (Vitamin D3) 25 mcg PO QAM potassium chloride 10 mEq capsule,extended release 100 meq PO QAM Take morning of surgery With a small sip of water, OTHERWISE NOTHING TO EAT OR DRINK AFTER MIDNIGHT: acetaminophen 500 mg tablet 500 mg PO BID atorvastatin 10 mg tablet 10 mg PO QAM Take evening before surgery acetaminophen 500 mg tablet 500 mg PO BID Other Notes If you have any questions please call us at [phone] or [phone] or [phone] or [phone]
--- NOTE | 2023-06-23 12:00 | Anesthesiology Consultation ---
Date of Service June 23, 2023 Assessment & Plan (1) Encounter for pre-operative examination: - S/P Open umbilical hernia repair (09/30/19): Grade view 1, MAC#3, ETT 7.5 at [facility] - Outpatient joint assessment: Pt currently scheduled for inpatient pathway. If surgeon requests review for outpatient joint pathway, patient is an acceptable candidate for outpatient joint program from anesthesia standpoint pending surgeon's office assessment that patient is motivated, has good support and completes Same Day Joint Program preop requirements. - Infectious disease screening: Per assessment on 06/23/23: No current infectious disease symptoms. Patient's sister tested positive for Covid 06/22/23 - he had Thanksgiving dinner/contact with her 06/19/23. Patient asymptomatic. Patient advised to contact surgeon/PAT if development if Covid- related/infectious symptoms prior to surgery. He will have preop Covid testing done later this week (5+ days after Covid exposure) at [facility] (order given to patient)- Awaiting results. Chart Review Chart Review: Patient seen in Pre Admission Testing Teaching & Discussion Pre-Anesthesia Teaching/Discussion Notes: Instructed NPO after midnight before surgery,except medications with 15 cc of water. Medication instructions provided according to the PAT guidelines. History Surgery Operation Date: 07/25/23 12:50 Proposed Procedures p Right Total Knee Arthroplasty(Right) - Graeme Vigil, Height/Weight Height: 5 ft 8 in Weight: 111.3 kg Allergies Allergy/AdvReac Type Severity Reaction Status Date / Time No Known Allergies Allergy Unknown Verified 06/13/23 10:26 Medications Home Medications Medication Instructions Recorded Confirmed Last Taken acetaminophen 500 mg tablet 500 mg PO BID 06/13/23 06/13/23 Unknown ascorbic acid (vitamin C) 500 mg 500 mg PO QAM 06/13/23 06/13/23 Unknown tablet,extended release (Vitamin C ER) atorvastatin 10 mg tablet 10 mg PO QAM 06/13/23 06/13/23 Unknown cholecalciferol (vitamin D3) 25 25 mcg PO QAM 06/13/23 06/13/23 Unknown mcg (1,000 unit) chewable tablet (Vitamin D3) glucosamine sulfate 500 mg tablet 500 mg PO QAM 06/13/23 06/13/23 Unknown omega 3-lob-wxx-fish oil 900 1 cap PO QAM 06/13/23 06/13/23 Unknown mg-1,400 mg capsule,delayed release potassium chloride 10 mEq 100 meq PO QAM 06/13/23 06/13/23 Unknown capsule,extended release turmeric root extract 500 mg 500 mg PO QAM 06/13/23 06/13/23 Unknown capsule vitamin E (dl, acetate) 450 mg 450 mg PO QAM 06/13/23 06/13/23 Unknown (1,000 unit) capsule Past Medical History Medical History Osteoarthritis of knees, bilateral Kidney stones passed on own Acid reflux controlled Hyperlipidemia Exercise / Class Metabolic Activity II 4-5 Yardwork/Stairs/Walk up hill Past Surgical History Surgical History Umbilical hernia Open umbilical hernia repair (09/30/19): Grade view 1, MAC#3, ETT 7.5 at [facility] Past Anesthesia History No Hx of Anesthesia Complications and No Family Hx of Anesthesia Complications History of PONV No Hx of PONV and No Hx of Motion Sickness Social History Smoking Status: Former smoker Do You Dip or Chew Tobacco: No Smoking End Date: Quit 1977 Hx Alcohol Use: Yes Alcohol type: wine and hard liquor alcohol intake frequency: a few times a month (At most) Hx Substance Use: No substance use type: does not use Review of Systems Patient denies chest pain, shortness of breath, dyspnea on exertion, fever, chills, cough, wheezing, palpitations. Physical Exam Vital Signs VITALS BP 142/82 P 82 TEMP 98.0 SP02 95%RA RESP 18 PHYSICAL Full cervical extension range of motion. Full TMJ range of motion. TMD 4 finger breaths Mallampati Score 1 Dentition: several missing (sides/molars) Lungs: clear throughout to auscultation Cardiac: regular rate and rhythm, no murmurs noted Spine: normal Carotid arteries: negative bruit Extremities: no LE edema + kidd (advised to trim/shorten, patient agreeable) Lab Results Anesthesia Preop Results Results Anesthesia Widget: PT 11.2 Seconds (9.0-12.0) 06/23/23 PTT 27.8 Seconds (21.0-31.0) 06/23/23 INR 1.0 (0.9-1.1) 06/23/23 Blood Type O Positive 06/23/23 Antibody Screen NEGATIVE 06/23/23 Testing Laboratory Results 06/03/23 WBC 8.3 H/H 14.7/44.5 PLATELETS 294 SODIUM 143 POTASSIUM 4.3 CHLORIDE 108 CO2 26 BUN 13 CREATININE 0.9 GLUCOSE 89 Electrocardiogram Date: 06/23/23 NSR at 74bpm. "Normal ECG" Chest X-Ray Date: 06/23/23 FINDINGS: Lung volumes are normal. Lungs are clear. There is no pneumothorax or pleural effusion. Mild cardiomegaly is unchanged. Mediastinal contours are stable. There is no evidence for pulmonary edema. IMPRESSION: No acute cardiopulmonary findings. Stable mild cardiomegaly.
--- NOTE | 2023-07-23 07:34 | History & Physical Report ---
Date of Service July 23, 2023 Assessment & Plan (1) Primary osteoarthritis of right knee: We will proceed with a right total knee arthroplasty. Postoperatively he will be started on aspirin for DVT prophylaxis and kept overnight in the hospital for postop medical management. He plans to have the hospital set up home health for discharge. History of Present Illness Chief Complaint: Osteoarthritis of the right knee. Primary Care Provider: Ashley Mosher PA-C Lamont is a pleasant 68-year-old male who has been treated through the [facility]. He has been dealing with osteoarthritis of both knees. His right knee is becoming much more severe. He is having trouble walking long distances or going up and down stairs. It is affecting his quality of life. X-rays and clinical examination have been diagnostic for worsening osteoarthritis of the right knee. After failing conservative treatment, he has elected proceed with a right total knee arthroplasty.. Allergies Allergy/AdvReac Type Severity Reaction Status Date / Time No Known Allergies Allergy Unknown Verified 06/13/23 10:26 Home Medications Medication Instructions Recorded Confirmed Type acetaminophen 500 mg tablet 500 mg PO BID 06/13/23 06/13/23 History ascorbic acid (vitamin C) 500 mg 500 mg PO QAM 06/13/23 06/13/23 History tablet,extended release (Vitamin C ER) atorvastatin 10 mg tablet 10 mg PO QAM 06/13/23 06/13/23 History cholecalciferol (vitamin D3) 25 25 mcg PO QAM 06/13/23 06/13/23 History mcg (1,000 unit) chewable tablet (Vitamin D3) glucosamine sulfate 500 mg tablet 500 mg PO QAM 06/13/23 06/13/23 History omega 5-qdr-laf-fish oil 900 1 cap PO QAM 06/13/23 06/13/23 History mg-1,400 mg capsule,delayed release potassium chloride 10 mEq 100 meq PO QAM 06/13/23 06/13/23 History capsule,extended release turmeric root extract 500 mg 500 mg PO QAM 06/13/23 06/13/23 History capsule vitamin E (dl, acetate) 450 mg 450 mg PO QAM 06/13/23 06/13/23 History (1,000 unit) capsule Past Med/Surg History Medical History Osteoarthritis of knees, bilateral Kidney stones passed on own Acid reflux controlled Hyperlipidemia Surgical History Umbilical hernia Open umbilical hernia repair (09/30/19): Grade view 1, MAC#3, ETT 7.5 at [facility] Social History Smoking Status: Former smoker Tobacco Type: Cigarettes Smoking End Date: Quit 1977; Second Hand Exposure: No; Do You Dip or Chew Tobacco: No; Tobacco Cessation Education Requested by Patient: No Hx Alcohol Use: Yes Alcohol type: wine and hard liquor Hx Substance Use: No Preferred Language: Maori Communication Ability: Effective Coat Fitter Required: No Beliefs That Will Affect Care: None Current Living Situation: Spouse Other Information That Helps Us Care for You: No Feels Safe at Home: Yes Safety Concerns: Feels Safe At This Time Assistive Devices: Contacts and Glasses Review of Systems All systems reviewed & are unremarkable except as noted in HPI & below. Physical Exam On physical examination the right knee, he has range of motion 5 to 115 degrees. No gross instability. Pain of the distal femoral condyles.. Constitutional WD/WN, vitals as above Eyes PERRL, conjunctivae normal, anicteric sclerae ENMT external ear and nose normal, oropharynx normal Neck trachea midline, no thyromegaly Respiratory normal respiratory effort Cardiovascular RRR, no murmur, no edema Gastrointestinal (Abdomen) normal bowel sounds, soft, nontender, no hepatosplenomegaly Psychiatric A+Ox3, euthymic affect Results & Data Results & Data Laboratory Results . Diagnostic Findings X-rays of the right knee show advanced osteoarthritis with joint space narrowing, osteophyte formation, and [id number] articulation. PG Care Time/CCT Total # of Minutes Spent Total Time Spent with Patient: Total time spent is greater than 50% in coordination of care (as documented) at patient's floor/unit and/or counseling patient: Coding Level of Care Code None Diagnoses Primary osteoarthritis of right knee M17.11
[~2023-07-24 07:20] MED LIST: ACETAMINOPHEN 500 MG TAB PO SCH; BUPIVACAINE 0.25% PF 30 ML VIAL ONE; BUPIVACAINE 0.5 % 5 MG/1 ML PF 10ML VIAL ONE; DEXAMETHASONE SOD INJ 4 MG/ML VIAL ONE; EPINEPHrine INJ 1 MG/ML AMP ONE; FAMOTIDINE 20 MG TAB PO SCH; GABAPENTIN 300 MG CAP PO SCH; LR 500ML BOLUS, THEN 15ML/HR IV SCH; LR 60ML/HR IV SCH; ORTHO JOINT MIX INFIL SCH; TRANEXAMIC ACID 1,000 MG **IV Intra-op IV SCH; TRANEXAMIC ACID 1,000 MG **IV Pre-op IV SCH; ceFAZolin 2000MG 2,000 MG/15 ML SYR IV SCH; dexAMETHasone 4 MG TAB PO SCH
[2023-07-24] MEDS ORDERED: fentaNYL citrate PF 100 MCG/2 ML VIAL ONE (08:52)
[2023-07-24] MEDS ORDERED: MIDAZOLAM HCL 1 MG/ML 2ML VIAL ONE (08:52)
--- NOTE | 2023-07-24 08:53 | History & Physical Bridge Note ---
Date of Service July 24, 2023 History & Physical Bridge Note I have examined the patient, reviewed the History & Physical and in the interval since the performance of the History & Physical I have noted the following changes of clinical significance: no changes noted
[2023-07-24] MEDS ORDERED: ORTHO JOINT ANESTHETIC ONE (09:25)
[2023-07-24] MEDS ORDERED: ONDANSETRON INJ 2 MG/ML 2 ML VIAL IV PRN ×2 (09:27→12:27)
[2023-07-24] MEDS ORDERED: ATROPINE SULFATE 0.1 MG/ML 10ML SYR IV PRN (09:27)
[2023-07-24] MEDS ORDERED: fentaNYL citrate PF 100 MCG/2 ML VIAL IV PRN (09:27)
[2023-07-24] MEDS ORDERED: ePHEDrine sulfate 50 MG/ML AMP IV PRN (09:27)
[2023-07-24] MEDS ORDERED: ONDANSETRON INJ 2 MG/ML 2 ML VIAL ONE (09:53)
[2023-07-24] MEDS ORDERED: PROPOFOL IV EMULSION 10 MG/ML 20 ML VIAL IV ONE ×2 (09:53→12:40)
[2023-07-24] MEDS ORDERED: ePHEDrine sulfate 50 MG/ML AMP ONE (09:53)
--- NOTE | 2023-07-24 11:06 | Operative Report ---
PG Post Operative Report Pre & Post Diagnosis Operation Date: 07/24/23 09:00 Pre-Op Diagnosis: Primary osteoarthritis of right knee Post-Op Diagnosis: Primary osteoarthritis of right knee I identified the patient and participated in the time-out.: Yes Procedure Operation Date: 07/24/23 09:00 Actual Procedures p Right Total Knee Arthroplasty(Right) - Graeme Vigil DO Surgeon Graeme Vigil DO Tip Puncher El Willoughby PA-C Estimated Blood Loss 30 Findings Consistent with Post-Op Diagnosis Specimens Right femoral tibial bone Description of Procedure Implants used: I used a Lynn Persona total knee arthroplasty system with a size 9 standard PS femur, F tibia, 34 oval patella, and a size 12 CPS polyethylene bearing. All components were cemented in place with Biomet cement. Lamont arrived [facility] for the above procedure. He was seen in the preoperative holding area and the operative extremity was identified and signed. He was given a preoperative antibiotic, TXA, a spinal anesthetic and an adductor nerve block. He was taken back to the operating room and laid on the table in supine position. He was given basic sedation. The operative knee was then prepped and draped in sterile fashion. A timeout was done, and the patient and the operative extremity was properly identified. A midline incision was made directly over the patella. Dissection was taken down to the extensor mechanism. A subvastus arthrotomy was used. The medial retinaculum was released and the fat pad was mostly excised. The knee was flexed and the ACL, PCL, and meniscus were removed. A drill was sent down the center of the femoral canal followed by an intramedullary brayan. Off that brayan a distal femoral cutting block was placed. 9 mm was resected off the distal femur at 5 of valgus. A posterior referencing AP sizing guide was then placed on the distal femur. The femur measured to be a size 9. 2 drill holes were placed in 3 of external rotation. A 4-in-1 cutting block was then impacted into place. Anterior, posterior, and chamfer cuts were then made. The proximal tibia was then exposed. An external tibial alignment guide was placed. A tibial cut guide was then anchored in place and the proximal tibia was then resected. The posterior aspect of the knee was then opened up and any additional meniscus fragments and osteophytes were removed. The tibia measured to be a size F. The tibial plate was then placed in the appropriate rotation and the tibia was drilled and punched. Trial components were then placed. I used a size 12 CPS polyethylene insert. The knee was brought through a full range of motion and felt to be stable. The peg holes for the femoral component were then drilled. The patella was then everted and 9 mm was resected off the posterior aspect of the patella. The patella measured to be a size 34 oval. 3 peg holes were then drilled. A trial patella was placed. The knee was once again brought through a full range of motion and felt to be stable. Trial components were then removed. The surrounding soft tissues were injected with 100 cc of an orthopedic pain control cocktail. All components were then cemented into place with Biomet cement. The final polyethylene insert was then snapped into place. Once cement was dry the tourniquet was deflated. Hemostasis was obtained. A dilute betadyne lavage was then done for 3 minutes. The joint was then irrigated with normal saline solution. The subvastus arthrotomy was then closed with #1 Vicryl suture. The skin was closed with 2-0 Vicryl, 3-0V lock suture, and ling. A soft compressive dressing was placed. He was then transferred to a hospital bed and taken to the postanesthesia care unit in stable condition. He tolerated the procedure well. El Willoughby PA-C, was present for the entire procedure. He was critical for patient positioning, prepping, draping, retraction exposure, wound closure and application of sterile dressing. I attest to the content of the Intraoperative Record and any orders documented therein. Any exceptions are noted below.
--- NOTE | 2023-07-24 11:55 | XRay Report ---
TWO VIEWS RIGHT KNEE CLINICAL HISTORY: Postoperative examination. FINDINGS: AP and crosstable lateral portable views of the right knee are obtained. A right knee arthr oplasty is in near anatomic alignment. There has been undersurface remodeling of the patella. No acut e fracture is seen. There are expected postoperative changes around the knee including skin clips, so ft tissue edema, and subcutaneous gas. IMPRESSION: Expected postoperative changes status post right knee arthroplasty. No acute fracture is seen. ACT 112: Negative or not required by law. Electronically signed by: Eligio Lawrence M.D. 07/24/2023 11:54 AM
[2023-07-24] MEDS ORDERED: METOCLOPRAMIDE HCL INJ 5 MG/ML 2 ML VIAL IV PRN (12:27)
[2023-07-24] MEDS ORDERED: oxyCODONE HCL IR 5 MG TAB (IMMEDIATE RELEASE) PO PRN (12:27)
[2023-07-24] MEDS ORDERED: HYDROmorphone INJ 0.5 MG/0.5 ML SYR IV PRN (12:27)
[2023-07-24] MEDS ORDERED: bisacodyL 10 MG SUPP PR PRN (12:27)
[2023-07-24] MEDS ORDERED: MAGNESIUM HYDROXIDE SUSP 30 ML UDC PO PRN (12:27)
[2023-07-24] MEDS ORDERED: traMADol HCL 50 MG TABLET PO PRN (12:27)
[2023-07-24] MEDS ORDERED: NALOXONE HCL 0.4 MG/1 ML VIAL/CARP IV PRN (12:27)
--- NOTE | 2023-07-24 12:49 | Anesthesiology Progress Note ---
Date of Service July 24, 2023 Anesthesia Post Procedure Vital Signs Vital Signs: Temp Pulse Pulse Resp BP Pulse Ox O2 Del Method 07/24/23 12:34 36.4 C L 70 16 115/68 95 Nasal Cannula 07/24/23 12:15 65 16 105/56 L 98 Nasal Cannula 07/24/23 12:05 36.5 C 64 14 113/57 L 95 Nasal Cannula 07/24/23 11:55 63 18 106/63 95 Oxymask 07/24/23 11:45 65 20 101/61 97 Oxymask 07/24/23 11:35 36.3 C L 79 18 103/60 95 Oxymask 07/24/23 08:11 36.8 C 88 20 129/100 94 Room Air O2 Flow Rate 07/24/23 12:34 2 07/24/23 12:15 2 07/24/23 12:05 2 07/24/23 11:55 4 07/24/23 11:45 4 07/24/23 11:35 6 07/24/23 08:11 Transfer of Care Handoff Completed per policy Notes Mental Status: alert / awake / arousable Patient Amnestic to Procedure: Yes Nausea / Vomiting: adequately controlled Pain: adequately controlled Airway Patency, RR, SpO2: stable & adequate BP & HR: stable & adequate Hydration State: stable & adequate Neuraxial Anesthesia: was administered and sensory block is resolving Anesthetic Complications: no major complications apparent and Pt Satisfied with anesthetic care
[2023-07-24] MEDS: SODIUM CHLORIDE 0.9% 1,000 ML IV SCH ×2 (13:01→20:33)
[2023-07-24] MEDS: ACETAMINOPHEN 500 MG TAB PO SCH ×2 (14:10→22:58)
[2023-07-24] MEDS: ceFAZolin 2000MG 2,000 MG/15 ML SYR IV SCH (17:39)
[2023-07-24] MEDS: KETOROLAC TROMETHAMINE 15 MG/ML VIAL IV SCH ×2 (17:40→23:06)
[2023-07-24] MEDS: DOCUSATE SODIUM 100 MG CAP PO SCH (20:34)
[2023-07-24] MEDS: ASPIRIN 81 MG ECTAB PO SCH (20:35)
[2023-07-24] MEDS ORDERED: SENNA 8.6 MG TAB PO SCH (21:00)
[2023-07-25] MEDS: ceFAZolin 2000MG 2,000 MG/15 ML SYR IV SCH (01:34)
[2023-07-25] MEDS: ACETAMINOPHEN 500 MG TAB PO SCH (05:32)
[2023-07-25] MEDS: KETOROLAC TROMETHAMINE 15 MG/ML VIAL IV SCH (05:33)
[2023-07-25] MEDS ORDERED: dexAMETHasone 4 MG TAB PO SCH (08:00)
[2023-07-25] MEDS: ASPIRIN 81 MG ECTAB PO SCH (08:16)
[2023-07-25] MEDS: DOCUSATE SODIUM 100 MG CAP PO SCH (08:18)
[2023-07-25] MEDS ORDERED: ATORVASTATIN 10 MG TAB PO SCH (09:00)
[2023-07-25] MEDS ORDERED: MULTIVITAMIN TAB PO SCH (09:00)
--- NOTE | 2023-07-25 10:20 | Orthopedic Progress Note ---
Date of Service July 25, 2023 Assessment & Plan (1) Status post right knee replacement: Overall, he is doing quite well today with good pain control to the right knee. He will be seen and evaluated later this morning by physical therapy to work on ambulation and range of motion exercises. He is on aspirin for DVT prophylaxis. He may be discharged home later today pending physical therapy evaluation. He will follow-up with orthopedics in 2 weeks for postoperative care. Subjective . Lamont was seen and evaluated resting in bed this morning comfortably in no apparent distress. He notes that his pain is well-controlled to the right knee. He has been up and ambulate with no significant issues. He has yet to work with physical therapy. He has no other concerns today. Review of Systems All systems reviewed & are unremarkable except as noted in HPI & below. Physical Exam . On physical examination of the right knee, dressings are in place, clean, dry, and intact. His leg is out in full extension. He has active plantarflexion dorsiflexion of the right ankle. +2 DP and PT pulses. Less than 2-second capillary refill. Normal sensation. Neurovascular intact. Results & Data Results & Data Laboratory Results . Diagnostic Findings . Postoperative x-rays of the right knee show the prosthesis to be in anatomical alignment with no evidence of fracture complication or loosening. PG Care Time/CCT Total # of Minutes Spent Total Time Spent with Patient: Total time spent is greater than 50% in coordination of care (as documented) at patient's floor/unit and/or counseling patient: Coding Level of Care Code 77450 Post Operative Follow-Up Diagnoses Status post right knee replacement Z96.651
--- NOTE | 2023-07-25 10:21 | Discharge Summary ---
Date of Service July 25, 2023 Admission HPI (Per Admitting) Lamont is a pleasant 68-year-old male [facility] He has been dealing with osteoarthritis of both knees. His right knee is becoming much more severe. He is having trouble walking long distances or going up and down stairs. It is affecting his quality of life. X-rays and clinical examination have been diagnostic for worsening osteoarthritis of the right knee. After failing conservative treatment, he has elected proceed with a right total knee arthroplasty.. Admission Exam (Per Admitting) On physical examination the right knee, he has range of motion 5 to 115 degrees. No gross instability. Pain of the distal femoral condyles.. Principal Diagnosis Same as "Discharge Diagnosis" noted below under Discharge Instructions. Discharge Exam . On physical examination of the right knee, dressings are in place, clean, dry, and intact. His leg is out in full extension. He has active plantarflexion dorsiflexion of the right ankle. +2 DP and PT pulses. Less than 2-second capillary refill. Normal sensation. Neurovascular intact. Discharge Data Procedures Performed Operation Date: 07/24/23 09:00 Actual Procedures p Right Total Knee Arthroplasty(Right) - Graeme Vigil DO Ordered Studies 07/24/23 05:00 US - OR guided needle placemen Routine Hospital Course (1) Status post right knee replacement: On July 24, 2023 Lamont arrived at [facility] and underwent a right total knee arthroplasty without complications. He had a spinal anesthetic. Postoperatively, he was started on aspirin for DVT prophylaxis and transferred to the general orthopedic floor in stable condition. His hospital course was uneventful. On postoperative day #1, his vital signs were stable and his pain was well-controlled. He participated well with physical therapy working on ambulation and range of motion exercises. He was then discharged home in stable condition. He will follow-up in orthopedics in 2 weeks for postoperative care. PG Care Time/CCT Total # of Minutes Spent Total Time Spent with Patient: Total time spent is greater than 50% in coordination of care (as documented) at patient's floor/unit and/or counseling patient: Discharge Plan Discharge Items Patient Disposition: Home - Home Health Services Reason For Visit: DJD Knee Right Discharge Diagnosis: Same Activity: Per Instructions section Non-emergency contact: Surgeon Call non-emergency contact if: your temperature is above 101.5, your wound has increased redness and your wound has increased drainage Follow-up/Referrals: Ashley Mosher PA-C [Primary Care Provider] - Diet: Regular Ambulatory Orders: SARS CoV2 RNA(COVID-19)Schulter (Routine) Timeframe: [id number] Facility: [facility] - Location: [facility] Ordered By: Desirae Groves Attending Provider Instructions: Activity and Therapy Recommendations: * If you are using [facility] then therapy will be provided at your home until they feel you have accomplished all of your goals. * If you are using [facility] then Physical Therapy will be provided until they feel you are ready to start Outpatient Physical Therapy. * If you are not using home therapy then Outpatient Physical Therapy should start about 3-5 days from your day of surgery. Therapy will last about 6-10 weeks * It is important not to put a pillow under your knee when you are relaxing or sleeping. It is just as important to make sure you are getting your knee perfectly straight as it is to regain your knee bend. * You were shown a series of exercises in the hospital. Do these exercises three times each day including the exercises you were shown in physical therapy. * Get up and walk several times each day. For the first four weeks, try not to stand or walk for more than one hour at a time. If you do stand or walk for more than one hour, you will not hurt anything, but your leg will likely swell. * As you feel comfortable, you may change from the walker or crutches to a cane and then to independent walking. Medications: * Narcotic You will likely be sent home from the hospital with a prescription for the narcotic pain medication that worked best throughout your stay. * Cefadroxil -take the antibiotic twice a day for 10 days to help prevent infection. * Aspirin Most patients will be required to take Aspirin 81mg twice a day for 6 weeks after surgery. This is obtained [id number] and a prescription is not necessary. * Other medications may be prescribed for specific circumstances. If you have any questions, please call the office at . * Resume previous home medications unless otherwise instructed TEDs/Elastic Stockings: The white elastic stockings help limit swelling and prevent blood clots from forming in your legs.~ The more you wear them, the more they work. Wear them for six weeks. Dressing Care: The dressing can be changed after physical therapy on postop day #1. Daily dry dressing changes for a few days, especially if the incision is still draining some. If the incision is not draining then you may leave the ling open to air. If there is a little bit of drainage or if the ling are getting stuck on your clothing then cover the incision with a dry dressing. The ling will be removed at your 2 week follow-up appointment. Showering: You may shower 5 days from the day of surgery as long as the incision is no longer draining. You may shower with the ling exposed. Let soapy water run over the ling and pat them dry. Do not scrub or soak the incision. Things To Watch For: * Drainage from the incision site that occurs more than one week after your surgery. * Increased redness at the incision site. * Fever above 102 degrees Fahrenheit. * Unusual chest pain or shortness of breath. * Call [facility] at with any of the above problems Follow-Up Visit: Follow-up with Dr. Vigil's PA (Graeme Alegre) 2-3 weeks after your day of surgery. He will remove your ling and answer any questions. If you have any additional questions or concerns, Dr Vigil is usually in the office at the same time and will be available An appointment was probably scheduled when you signed-up for surgery in the office. If you have any questions call Office Instructions: More detailed instructions as well as Frequently Asked Questions were provided in a folder by our office when you signed-up for surgery. Please review these instructions when you get home. If you have any further questions or concerns, please feel free to call the office at [phone] Pending Studies at Discharge: No Stand-Alone Forms: My [facility] [employer], Smoking Cessation Medications and DC Order Prescriptions: New aspirin 81 mg Tablet,Delayed Release (Dr/Ec) 81 mg PO BID 42 Days Qty: 84 0RF oxycodone 5 mg Tablet 5 mg PO Q6 PRN (Reason: pain) Qty: 30 0RF cefadroxil 500 mg capsule 500 mg PO BID 10 Days Qty: 20 0RF Continued potassium chloride 10 mEq Capsule, Extended Release 100 meq PO QAM atorvastatin 10 mg Tablet 10 mg PO QAM glucosamine sulfate 500 mg Tablet 500 mg PO QAM Rx Instructions: administer with meals acetaminophen 500 mg Tablet 500 mg PO BID ascorbic acid (vitamin C) [Vitamin C] 500 mg Tablet Extended Release 500 mg PO QAM cholecalciferol (vitamin D3) [Vitamin D3] 25 mcg (1,000 unit) Tablet,Chewable 25 mcg PO QAM omega 6-rev-gyp-fish oil 900-1,400 mg Capsule,Delayed Release(Dr/Ec) 1 cap PO QAM vitamin E (dl, acetate) 450 mg (1,000 unit) Capsule 450 mg PO QAM turmeric root extract 500 mg Capsule 500 mg PO QAM Krames/Other Patient Handouts: Knee Replace Home Recovery Admission Data Admit Date/Time: 07/24/23 11:38 Attending Provider: Graeme Vigil Admit Provider: Graeme Vigil Primary Care Provider: Ashley Mosher Other Interventions: Discharge Summary Assessment (RN) Last Done: 07/25/23 10:13
== END 2023-07-25 11:03 | disposition home health service (06) ==
LOC: ASU 07:20 → 3E 07:20